=== PATIENT | male | born 1955 | race African-American/Black ===

== ENCOUNTER 2021-01-16 13:01 | Inpatient (IN) | payer MEDICARE ==
[2021-01-16] MEDS ORDERED: Benzonatate 100 MG CAP PO PRN (17:32)
[2021-01-16] MEDS ORDERED: Rivaroxaban 10 MG TAB PO SCH (17:45)
[2021-01-16] MEDS: Nicotine 14 MG PATCH TOP SCH (18:09)
[2021-01-16] MEDS: Gabapentin 400 MG CAP PO SCH (21:15)
[2021-01-16] MEDS: Lantus 1000 UNITS/10 ML VIAL SC SCH (21:16)
[2021-01-16] MEDS: Amoxicillin/Potassium Clav 875 MG TAB PO SCH (21:16)
[2021-01-16] MEDS ORDERED: Calcium Carbonate 500 MG ChewTAB PO PRN (21:33)
[2021-01-16] MEDS ORDERED: cloNIDine 0.1 MG TAB PO PRN (21:33)
[2021-01-16] MEDS ORDERED: Artificial Tear Sol 15 ML BOT EA EYE PRN (21:33)
[2021-01-16] MEDS ORDERED: Loperamide HCl 2 MG CAP PO PRN (21:33)
[2021-01-16] MEDS ORDERED: Acetaminophen 500 MG TAB PO PRN ×2 (21:33)
[2021-01-16] MEDS ORDERED: Eucerin (Mineral Oil/Petrolatum,White) 30 gm Jar TOP PRN (21:33)
[2021-01-16] MEDS ORDERED: Senokot S 8.6-50 MG TAB PO PRN (21:33)
[2021-01-16] MEDS ORDERED: Cepastat Lozenges 1 LOZ PO PRN (21:33)
[2021-01-16] MEDS ORDERED: Ondansetron ODT 4 MG TAB SL PRN (21:33)
[2021-01-16] MEDS ORDERED: Sodium Chloride 0.65% Nasal 44 ML BOT EA NARE PRN (21:33)
[2021-01-16] MEDS ORDERED: Dextrose 50% Abboject 50 ML SYRINGE SLOW IVP PRN (21:33)
[2021-01-17 05:42] LABS: Anion Gap 10 mmol/L (10-20); BUN (Urea Nitrogen) 8 mg/dL (8.4-25.7); Calc. Creatinine Clearance 107 mL/min (70-130); Calcium 8.3 mg/dL (7.8-10.44); Carbon Dioxide 26 mmol/L (23-31); Chloride 106 mmol/L (98-107); Glucose 262 mg/dL (80-115); Potassium 3.9 mmol/L (3.5-5.1); Sodium 138 mmol/L (136-145)
[2021-01-17] MEDS: HumaLOG 300 UNITS/3 ML VIAL SC PRN ×4 (05:47→20:54)
[2021-01-17 06:14] LABS: Band 11 % (5-11); Hemoglobin 8.8 g/dL (14.0-18.0); Hypochromia SLIGHT = 6-15 cells (100X) (0-5/hpf); Lymphocytes 24 % (21-51); MDiff Complete? YES; Mean Corpuscular HGB CONC 29.9 g/dL (32.0-36.0); Mean Corpuscular Hemoglobin 24.8 pg (27.0-31.0); Mean Corpuscular Volume 82.8 fL (78.0-98.0); Mean Platelet Volume 5.7 fL (7.4-10.4); Metamyelocyte 1 % (0-0); Monocytes 3 % (0-10); Neutrophil 61 % (42-75); Platelet Count 588 thou/uL (130-400); Platelet Morphology Comment Appears Increased; RBC Distribution Width 14.2 % (11.5-14.5); Red Blood Cell (RBC) Count 3.57 mill/uL (4.70-6.10); Target Cells SLIGHT = 2-5 cells (100X) (0-1/hpf); White Blood Cell (WBC) Count 9.2 thou/uL (4.8-10.8)
[2021-01-17] MEDS: Gabapentin 400 MG CAP PO SCH ×2 (08:25→20:52)
[2021-01-17] MEDS: Amoxicillin/Potassium Clav 875 MG TAB PO SCH ×2 (08:25→20:51)
[2021-01-17] MEDS: Tamsulosin HCl 0.4 MG CAP PO SCH (08:25)
[2021-01-17] MEDS: Amlodipine 5 MG TAB PO SCH (08:26)
[2021-01-17] MEDS: DULoxetine 30 MG CAP PO SCH (08:27)
[2021-01-17] MEDS: metFORMIN 500 MG TAB PO SCH ×2 (08:27→17:12)
[2021-01-17] MEDS: Saccharomyces boulardii 250 MG CAP PO SCH (08:27)
[2021-01-17] MEDS: Losartan Potassium 50 MG TAB PO SCH (08:27)
[2021-01-17] MEDS: Furosemide 20 MG TAB PO SCH (08:27)
[2021-01-17] MEDS: Glimepiride 2 MG TAB PO SCH (08:27)
[2021-01-17] MEDS: HYDROcodone/Acetaminophen 5/325 mg Tablet PO PRN ×2 (11:27→20:52)
[2021-01-17] MEDS: Rivaroxaban 10 MG TAB PO SCH (17:13)
[2021-01-17] MEDS: Nicotine 14 MG PATCH TOP SCH (17:14)
[2021-01-17] MEDS: Atorvastatin Calcium 40 MG TAB PO SCH (20:52)
[2021-01-17] MEDS: Lantus 1000 UNITS/10 ML VIAL SC SCH (20:53)
[2021-01-18] MEDS: Amoxicillin/Potassium Clav 875 MG TAB PO SCH ×2 (08:48→20:46)
[2021-01-18] MEDS: Saccharomyces boulardii 250 MG CAP PO SCH (08:48)
[2021-01-18] MEDS: Gabapentin 400 MG CAP PO SCH ×2 (08:49→20:47)
[2021-01-18] MEDS: Tamsulosin HCl 0.4 MG CAP PO SCH (08:50)
[2021-01-18] MEDS: DULoxetine 30 MG CAP PO SCH (08:50)
[2021-01-18] MEDS: Losartan Potassium 50 MG TAB PO SCH (08:50)
[2021-01-18] MEDS: Glimepiride 2 MG TAB PO SCH (08:50)
[2021-01-18] MEDS: metFORMIN 500 MG TAB PO SCH ×2 (08:50→18:14)
[2021-01-18] MEDS: Furosemide 20 MG TAB PO SCH (08:51)
[2021-01-18] MEDS: Amlodipine 5 MG TAB PO SCH (08:51)
[2021-01-18] MEDS: Rivaroxaban 10 MG TAB PO SCH (18:14)
[2021-01-18] MEDS: Nicotine 14 MG PATCH TOP SCH (18:15)
[2021-01-18] MEDS: HYDROcodone/Acetaminophen 5/325 mg Tablet PO PRN (20:46)
[2021-01-18] MEDS: Atorvastatin Calcium 40 MG TAB PO SCH (20:47)
[2021-01-18] MEDS: Lantus 1000 UNITS/10 ML VIAL SC SCH (20:51)
[2021-01-18] MEDS: Loperamide HCl 2 MG CAP PO PRN (22:34)
[2021-01-19] MEDS: HumaLOG 300 UNITS/3 ML VIAL SC PRN ×2 (05:49→12:50)
[2021-01-19] MEDS: metFORMIN 500 MG TAB PO SCH ×2 (08:26→17:02)
[2021-01-19] MEDS: Glimepiride 2 MG TAB PO SCH (08:27)
[2021-01-19] MEDS: Tamsulosin HCl 0.4 MG CAP PO SCH (08:27)
[2021-01-19] MEDS: Losartan Potassium 50 MG TAB PO SCH (08:28)
[2021-01-19] MEDS: Gabapentin 400 MG CAP PO SCH ×2 (08:28→19:59)
[2021-01-19] MEDS: Amoxicillin/Potassium Clav 875 MG TAB PO SCH ×2 (08:30→19:59)
[2021-01-19] MEDS: Saccharomyces boulardii 250 MG CAP PO SCH (08:31)
[2021-01-19] MEDS: Amlodipine 5 MG TAB PO SCH (08:31)
[2021-01-19] MEDS: DULoxetine 30 MG CAP PO SCH (08:32)
[2021-01-19] MEDS: Furosemide 20 MG TAB PO SCH (08:32)
[2021-01-19] MEDS: HYDROcodone/Acetaminophen 5/325 mg Tablet PO PRN ×2 (13:15→19:53)
[2021-01-19] MEDS: Nicotine 14 MG PATCH TOP SCH (17:02)
[2021-01-19] MEDS: Rivaroxaban 10 MG TAB PO SCH (17:02)
[2021-01-19] MEDS: Loperamide HCl 2 MG CAP PO PRN (19:53)
[2021-01-19] MEDS: Atorvastatin Calcium 40 MG TAB PO SCH (19:59)
[2021-01-19] MEDS: Lantus 1000 UNITS/10 ML VIAL SC SCH (19:59)
[2021-01-20] MEDS: Glimepiride 2 MG TAB PO SCH (08:04)
[2021-01-20] MEDS: metFORMIN 500 MG TAB PO SCH ×2 (08:04→17:42)
[2021-01-20] MEDS: Amlodipine 5 MG TAB PO SCH (08:04)
[2021-01-20] MEDS: Gabapentin 400 MG CAP PO SCH ×2 (08:05→20:50)
[2021-01-20] MEDS: Losartan Potassium 50 MG TAB PO SCH (08:06)
[2021-01-20] MEDS: Furosemide 20 MG TAB PO SCH (08:07)
[2021-01-20] MEDS: Tamsulosin HCl 0.4 MG CAP PO SCH (08:07)
[2021-01-20] MEDS: DULoxetine 30 MG CAP PO SCH (08:07)
[2021-01-20] MEDS: Saccharomyces boulardii 250 MG CAP PO SCH (08:07)
[2021-01-20] MEDS: Loperamide HCl 2 MG CAP PO PRN (08:08)
[2021-01-20] MEDS: Amoxicillin/Potassium Clav 875 MG TAB PO SCH ×2 (08:14→20:51)
[2021-01-20] MEDS: Rivaroxaban 10 MG TAB PO SCH (17:42)
[2021-01-20] MEDS: Nicotine 14 MG PATCH TOP SCH (17:42)
[2021-01-20] MEDS: HYDROcodone/Acetaminophen 5/325 mg Tablet PO PRN (18:39)
[2021-01-20] MEDS: Atorvastatin Calcium 40 MG TAB PO SCH (20:51)
[2021-01-20] MEDS: Lantus 1000 UNITS/10 ML VIAL SC SCH (20:52)
[2021-01-21] MEDS: metFORMIN 500 MG TAB PO SCH ×2 (08:14→17:06)
[2021-01-21] MEDS: Amlodipine 5 MG TAB PO SCH (08:14)
[2021-01-21] MEDS: Glimepiride 2 MG TAB PO SCH (08:14)
[2021-01-21] MEDS: Amoxicillin/Potassium Clav 875 MG TAB PO SCH ×2 (08:14→20:46)
[2021-01-21] MEDS: DULoxetine 30 MG CAP PO SCH (08:15)
[2021-01-21] MEDS: Furosemide 20 MG TAB PO SCH (08:15)
[2021-01-21] MEDS: Gabapentin 400 MG CAP PO SCH ×2 (08:15→20:45)
[2021-01-21] MEDS: Losartan Potassium 50 MG TAB PO SCH (08:16)
[2021-01-21] MEDS: Saccharomyces boulardii 250 MG CAP PO SCH (08:16)
[2021-01-21] MEDS: Tamsulosin HCl 0.4 MG CAP PO SCH (08:16)
[2021-01-21] MEDS: HYDROcodone/Acetaminophen 5/325 mg Tablet PO PRN ×3 (08:18→23:45)
[2021-01-21] MEDS: Nicotine 14 MG PATCH TOP SCH (17:06)
[2021-01-21] MEDS: HumaLOG 300 UNITS/3 ML VIAL SC PRN (17:06)
[2021-01-21] MEDS: Rivaroxaban 10 MG TAB PO SCH (17:06)
[2021-01-21] MEDS: Lantus 1000 UNITS/10 ML VIAL SC SCH (20:46)
[2021-01-21] MEDS: Atorvastatin Calcium 40 MG TAB PO SCH (20:46)
[2021-01-22] MEDS: Glimepiride 2 MG TAB PO SCH (08:15)
[2021-01-22] MEDS: Amlodipine 5 MG TAB PO SCH (08:15)
[2021-01-22] MEDS: metFORMIN 500 MG TAB PO SCH ×2 (08:15→16:44)
[2021-01-22] MEDS: Amoxicillin/Potassium Clav 875 MG TAB PO SCH ×2 (08:16→20:27)
[2021-01-22] MEDS: Gabapentin 400 MG CAP PO SCH ×2 (08:17→20:27)
[2021-01-22] MEDS: DULoxetine 30 MG CAP PO SCH (08:17)
[2021-01-22] MEDS: Furosemide 20 MG TAB PO SCH (08:17)
[2021-01-22] MEDS: Tamsulosin HCl 0.4 MG CAP PO SCH (08:18)
[2021-01-22] MEDS: Saccharomyces boulardii 250 MG CAP PO SCH (08:18)
[2021-01-22] MEDS: Losartan Potassium 50 MG TAB PO SCH (08:18)
[2021-01-22] MEDS: Nicotine 14 MG PATCH TOP SCH (16:43)
[2021-01-22] MEDS: Rivaroxaban 10 MG TAB PO SCH (16:43)
[2021-01-22] MEDS: Atorvastatin Calcium 40 MG TAB PO SCH (20:27)
[2021-01-22] MEDS: Lantus 1000 UNITS/10 ML VIAL SC SCH (20:27)
[2021-01-23 06:35] LABS: Anion Gap 10 mmol/L (10-20); BUN (Urea Nitrogen) 9 mg/dL (8.4-25.7); Calc. Creatinine Clearance 106 mL/min (70-130); Calcium 8.6 mg/dL (7.8-10.44); Carbon Dioxide 27 mmol/L (23-31); Chloride 107 mmol/L (98-107); Glucose 88 mg/dL (80-115); Potassium 3.9 mmol/L (3.5-5.1); Sodium 140 mmol/L (136-145)
[2021-01-23 06:38] LABS: #Basophils 0.1 thou/uL (0.0-0.2); #Eosinphils 0.3 thou/uL (0.0-0.7); #Lymphocytes 2.6 thou/uL (1.20-3.40); #Monocytes 0.3 thou/uL (0.11-0.59); %Basophils 0.8 % (0.0-1.0); %Eosinophils 3.1 % (0.0-10.0); %Monocytes 3.4 % (0.0-10.0); %Neutrophils 60.8 % (42.0-75.0); Hemoglobin 8.5 g/dL (14.0-18.0); Mean Corpuscular HGB CONC 29.8 g/dL (32.0-36.0); Mean Corpuscular Hemoglobin 24.9 pg (27.0-31.0); Mean Corpuscular Volume 83.5 fL (78.0-98.0); Mean Platelet Volume 4.9 fL (7.4-10.4); Platelet Count 638 thou/uL (130-400); RBC Distribution Width 15.8 % (11.5-14.5); Red Blood Cell (RBC) Count 3.42 mill/uL (4.70-6.10); White Blood Cell (WBC) Count 8.2 thou/uL (4.8-10.8)
[2021-01-23 06:40] LABS: Anisocytosis SLIGHT = 6-15 cells (100X) (0-5/hpf); Microcytosis SLIGHT = 6-15 cells (100X) (0-5/hpf); Platelet Morphology Comment Appears Increased
[2021-01-23] MEDS: Gabapentin 400 MG CAP PO SCH ×2 (08:30→21:42)
[2021-01-23] MEDS: Amoxicillin/Potassium Clav 875 MG TAB PO SCH ×2 (08:30→21:43)
[2021-01-23] MEDS: metFORMIN 500 MG TAB PO SCH ×2 (08:31→17:22)
[2021-01-23] MEDS: Saccharomyces boulardii 250 MG CAP PO SCH (08:31)
[2021-01-23] MEDS: DULoxetine 30 MG CAP PO SCH (08:31)
[2021-01-23] MEDS: Amlodipine 5 MG TAB PO SCH (08:31)
[2021-01-23] MEDS: Furosemide 20 MG TAB PO SCH (08:31)
[2021-01-23] MEDS: Glimepiride 2 MG TAB PO SCH (08:32)
[2021-01-23] MEDS: Tamsulosin HCl 0.4 MG CAP PO SCH (08:32)
[2021-01-23] MEDS: Losartan Potassium 50 MG TAB PO SCH (08:32)
[2021-01-23] MEDS: HumaLOG 300 UNITS/3 ML VIAL SC PRN ×3 (12:25→21:43)
[2021-01-23] MEDS: Nicotine 14 MG PATCH TOP SCH (17:22)
[2021-01-23] MEDS: Rivaroxaban 10 MG TAB PO SCH (17:22)
[2021-01-23] MEDS: Atorvastatin Calcium 40 MG TAB PO SCH (21:43)
[2021-01-23] MEDS: Lantus 1000 UNITS/10 ML VIAL SC SCH (21:43)
[2021-01-24] MEDS: Amoxicillin/Potassium Clav 875 MG TAB PO SCH ×2 (08:07→20:54)
[2021-01-24] MEDS: Losartan Potassium 50 MG TAB PO SCH (08:07)
[2021-01-24] MEDS: metFORMIN 500 MG TAB PO SCH ×2 (08:07→17:54)
[2021-01-24] MEDS: Saccharomyces boulardii 250 MG CAP PO SCH (08:08)
[2021-01-24] MEDS: Amlodipine 5 MG TAB PO SCH (08:08)
[2021-01-24] MEDS: Gabapentin 400 MG CAP PO SCH ×2 (08:08→20:53)
[2021-01-24] MEDS: DULoxetine 30 MG CAP PO SCH (08:08)
[2021-01-24] MEDS: Furosemide 20 MG TAB PO SCH (08:09)
[2021-01-24] MEDS: Tamsulosin HCl 0.4 MG CAP PO SCH (08:09)
[2021-01-24] MEDS: Glimepiride 2 MG TAB PO SCH (08:09)
[2021-01-24] MEDS: HumaLOG 300 UNITS/3 ML VIAL SC PRN (12:22)
[2021-01-24] MEDS: Rivaroxaban 10 MG TAB PO SCH (17:54)
[2021-01-24] MEDS: Nicotine 14 MG PATCH TOP SCH (18:30)
[2021-01-24] MEDS: Atorvastatin Calcium 40 MG TAB PO SCH (20:54)
[2021-01-24] MEDS: HYDROcodone/Acetaminophen 5/325 mg Tablet PO PRN (20:54)
[2021-01-24] MEDS: Lantus 1000 UNITS/10 ML VIAL SC SCH (20:55)
[2021-01-25] MEDS: Saccharomyces boulardii 250 MG CAP PO SCH (08:39)
[2021-01-25] MEDS: Losartan Potassium 50 MG TAB PO SCH (08:39)
[2021-01-25] MEDS: metFORMIN 500 MG TAB PO SCH ×2 (08:39→16:45)
[2021-01-25] MEDS: Gabapentin 400 MG CAP PO SCH ×2 (08:39→20:15)
[2021-01-25] MEDS: Amoxicillin/Potassium Clav 875 MG TAB PO SCH ×2 (08:39→20:16)
[2021-01-25] MEDS: Amlodipine 5 MG TAB PO SCH (08:39)
[2021-01-25] MEDS: Glimepiride 2 MG TAB PO SCH (08:40)
[2021-01-25] MEDS: DULoxetine 30 MG CAP PO SCH (08:40)
[2021-01-25] MEDS: Tamsulosin HCl 0.4 MG CAP PO SCH (08:40)
[2021-01-25] MEDS: Furosemide 20 MG TAB PO SCH (08:40)
[2021-01-25] MEDS: HumaLOG 300 UNITS/3 ML VIAL SC PRN (11:55)
[2021-01-25] MEDS: Nicotine 14 MG PATCH TOP SCH (16:45)
[2021-01-25] MEDS: Rivaroxaban 10 MG TAB PO SCH (16:45)
[2021-01-25] MEDS: Atorvastatin Calcium 40 MG TAB PO SCH (20:16)
[2021-01-25] MEDS: Lantus 1000 UNITS/10 ML VIAL SC SCH (20:17)
[2021-01-26] MEDS: HYDROcodone/Acetaminophen 5/325 mg Tablet PO PRN ×2 (01:17→21:53)
[2021-01-26] MEDS: HumaLOG 300 UNITS/3 ML VIAL SC PRN ×2 (06:27→17:07)
[2021-01-26] MEDS: Amlodipine 5 MG TAB PO SCH (09:23)
[2021-01-26] MEDS: metFORMIN 500 MG TAB PO SCH ×2 (09:24→17:06)
[2021-01-26] MEDS: Gabapentin 400 MG CAP PO SCH ×2 (09:24→21:44)
[2021-01-26] MEDS: Glimepiride 2 MG TAB PO SCH (09:24)
[2021-01-26] MEDS: DULoxetine 30 MG CAP PO SCH (09:24)
[2021-01-26] MEDS: Tamsulosin HCl 0.4 MG CAP PO SCH (09:24)
[2021-01-26] MEDS: Furosemide 20 MG TAB PO SCH (09:25)
[2021-01-26] MEDS: Losartan Potassium 50 MG TAB PO SCH (09:25)
[2021-01-26] MEDS: Saccharomyces boulardii 250 MG CAP PO SCH (09:25)
[2021-01-26] MEDS: Amoxicillin/Potassium Clav 875 MG TAB PO SCH ×2 (09:25→21:44)
[2021-01-26] MEDS: Rivaroxaban 10 MG TAB PO SCH (17:05)
[2021-01-26] MEDS: Nicotine 14 MG PATCH TOP SCH (17:06)
[2021-01-26] MEDS: Atorvastatin Calcium 40 MG TAB PO SCH (21:44)
[2021-01-26] MEDS: Lantus 1000 UNITS/10 ML VIAL SC SCH (21:45)
[2021-01-27] MEDS: HumaLOG 300 UNITS/3 ML VIAL SC PRN ×3 (06:15→21:22)
[2021-01-27] MEDS: Glimepiride 2 MG TAB PO SCH (08:04)
[2021-01-27] MEDS: metFORMIN 500 MG TAB PO SCH ×2 (08:04→17:41)
[2021-01-27] MEDS: Amlodipine 5 MG TAB PO SCH (08:04)
[2021-01-27] MEDS: Gabapentin 400 MG CAP PO SCH ×2 (08:06→21:21)
[2021-01-27] MEDS: Furosemide 20 MG TAB PO SCH (08:06)
[2021-01-27] MEDS: Amoxicillin/Potassium Clav 875 MG TAB PO SCH ×2 (08:06→21:21)
[2021-01-27] MEDS: DULoxetine 30 MG CAP PO SCH (08:06)
[2021-01-27] MEDS: Tamsulosin HCl 0.4 MG CAP PO SCH (08:07)
[2021-01-27] MEDS: Losartan Potassium 50 MG TAB PO SCH (08:07)
[2021-01-27] MEDS: Saccharomyces boulardii 250 MG CAP PO SCH (08:07)
[2021-01-27] MEDS: Rivaroxaban 10 MG TAB PO SCH (17:41)
[2021-01-27] MEDS: Nicotine 14 MG PATCH TOP SCH (18:13)
[2021-01-27] MEDS: Atorvastatin Calcium 40 MG TAB PO SCH (21:21)
[2021-01-27] MEDS: Lantus 1000 UNITS/10 ML VIAL SC SCH (21:22)
[2021-01-28] MEDS: Saccharomyces boulardii 250 MG CAP PO SCH (08:36)
[2021-01-28] MEDS: Furosemide 20 MG TAB PO SCH (08:36)
[2021-01-28] MEDS: metFORMIN 500 MG TAB PO SCH ×2 (08:36→18:24)
[2021-01-28] MEDS: Amoxicillin/Potassium Clav 875 MG TAB PO SCH ×2 (08:36→22:27)
[2021-01-28] MEDS: Tamsulosin HCl 0.4 MG CAP PO SCH (08:36)
[2021-01-28] MEDS: Amlodipine 5 MG TAB PO SCH (08:36)
[2021-01-28] MEDS: DULoxetine 30 MG CAP PO SCH (08:37)
[2021-01-28] MEDS: Gabapentin 400 MG CAP PO SCH ×2 (08:40→22:26)
[2021-01-28] MEDS: Glimepiride 2 MG TAB PO SCH (08:40)
[2021-01-28] MEDS: Losartan Potassium 50 MG TAB PO SCH (08:40)
[2021-01-28] MEDS: HYDROcodone/Acetaminophen 5/325 mg Tablet PO PRN (09:42)
[2021-01-28] MEDS: HumaLOG 300 UNITS/3 ML VIAL SC PRN ×2 (18:23→22:27)
[2021-01-28] MEDS: Nicotine 14 MG PATCH TOP SCH (18:23)
[2021-01-28] MEDS: Rivaroxaban 10 MG TAB PO SCH (18:24)
[2021-01-28] MEDS: Atorvastatin Calcium 40 MG TAB PO SCH (22:26)
[2021-01-28] MEDS: Lantus 1000 UNITS/10 ML VIAL SC SCH (22:27)
[2021-01-29] MEDS: HumaLOG 300 UNITS/3 ML VIAL SC PRN (06:34)
[2021-01-29] MEDS: Amlodipine 5 MG TAB PO SCH (08:04)
[2021-01-29] MEDS: Glimepiride 2 MG TAB PO SCH (08:04)
[2021-01-29] MEDS: metFORMIN 500 MG TAB PO SCH ×2 (08:04→17:14)
[2021-01-29] MEDS: Amoxicillin/Potassium Clav 875 MG TAB PO SCH ×2 (08:05→21:12)
[2021-01-29] MEDS: DULoxetine 30 MG CAP PO SCH (08:05)
[2021-01-29] MEDS: Furosemide 20 MG TAB PO SCH (08:05)
[2021-01-29] MEDS: Gabapentin 400 MG CAP PO SCH ×2 (08:05→21:12)
[2021-01-29] MEDS: Losartan Potassium 50 MG TAB PO SCH (08:07)
[2021-01-29] MEDS: Saccharomyces boulardii 250 MG CAP PO SCH (08:07)
[2021-01-29] MEDS: HYDROcodone/Acetaminophen 5/325 mg Tablet PO PRN ×2 (08:08→15:36)
[2021-01-29] MEDS: Tamsulosin HCl 0.4 MG CAP PO SCH (08:08)
[2021-01-29] MEDS: Rivaroxaban 10 MG TAB PO SCH (17:14)
[2021-01-29] MEDS: Nicotine 14 MG PATCH TOP SCH (17:14)
[2021-01-29] MEDS: Atorvastatin Calcium 40 MG TAB PO SCH (21:12)
[2021-01-29] MEDS: Lantus 1000 UNITS/10 ML VIAL SC SCH (21:22)
[2021-01-30 06:18] LABS: Hemoglobin 9.6 g/dL (14.0-18.0); Platelet Count 336 thou/uL (130-400)
[2021-01-30] MEDS: Glimepiride 2 MG TAB PO SCH (08:27)
[2021-01-30] MEDS: Amlodipine 5 MG TAB PO SCH (08:27)
[2021-01-30] MEDS: metFORMIN 500 MG TAB PO SCH ×2 (08:27→17:36)
[2021-01-30] MEDS: Gabapentin 400 MG CAP PO SCH ×2 (08:28→20:16)
[2021-01-30] MEDS: Furosemide 20 MG TAB PO SCH (08:28)
[2021-01-30] MEDS: Amoxicillin/Potassium Clav 875 MG TAB PO SCH ×2 (08:28→20:16)
[2021-01-30] MEDS: DULoxetine 30 MG CAP PO SCH (08:28)
[2021-01-30] MEDS: Saccharomyces boulardii 250 MG CAP PO SCH (08:30)
[2021-01-30] MEDS: Tamsulosin HCl 0.4 MG CAP PO SCH (08:30)
[2021-01-30] MEDS: Losartan Potassium 50 MG TAB PO SCH (08:30)
[2021-01-30] MEDS: HYDROcodone/Acetaminophen 5/325 mg Tablet PO PRN ×2 (12:48→22:51)
[2021-01-30] MEDS: Rivaroxaban 10 MG TAB PO SCH (17:36)
[2021-01-30] MEDS: Nicotine 14 MG PATCH TOP SCH (17:36)
[2021-01-30] MEDS: Lantus 1000 UNITS/10 ML VIAL SC SCH (20:16)
[2021-01-30] MEDS: Atorvastatin Calcium 40 MG TAB PO SCH (20:17)
[2021-01-31] MEDS: Amlodipine 5 MG TAB PO SCH (08:35)
[2021-01-31] MEDS: Gabapentin 400 MG CAP PO SCH ×2 (08:35→20:58)
[2021-01-31] MEDS: Losartan Potassium 50 MG TAB PO SCH (08:35)
[2021-01-31] MEDS: DULoxetine 30 MG CAP PO SCH (08:36)
[2021-01-31] MEDS: metFORMIN 500 MG TAB PO SCH ×2 (08:36→16:45)
[2021-01-31] MEDS: Saccharomyces boulardii 250 MG CAP PO SCH (08:36)
[2021-01-31] MEDS: Glimepiride 2 MG TAB PO SCH (08:36)
[2021-01-31] MEDS: Furosemide 20 MG TAB PO SCH (08:36)
[2021-01-31] MEDS: Tamsulosin HCl 0.4 MG CAP PO SCH (08:36)
[2021-01-31] MEDS: Amoxicillin/Potassium Clav 875 MG TAB PO SCH ×2 (08:36→20:58)
[2021-01-31] MEDS: HYDROcodone/Acetaminophen 5/325 mg Tablet PO PRN ×2 (08:43→20:59)
[2021-01-31] MEDS: Nicotine 14 MG PATCH TOP SCH (16:45)
[2021-01-31] MEDS: Rivaroxaban 10 MG TAB PO SCH (16:45)
[2021-01-31] MEDS: Atorvastatin Calcium 40 MG TAB PO SCH (20:59)
[2021-01-31] MEDS: Lantus 1000 UNITS/10 ML VIAL SC SCH (21:00)
[2021-02-01] MEDS: metFORMIN 500 MG TAB PO SCH ×2 (07:31→16:42)
[2021-02-01] MEDS: Glimepiride 2 MG TAB PO SCH (07:32)
[2021-02-01] MEDS: Amoxicillin/Potassium Clav 875 MG TAB PO SCH ×2 (08:31→20:40)
[2021-02-01] MEDS: Gabapentin 400 MG CAP PO SCH ×2 (08:32→20:39)
[2021-02-01] MEDS: Saccharomyces boulardii 250 MG CAP PO SCH (08:33)
[2021-02-01] MEDS: Furosemide 20 MG TAB PO SCH (08:35)
[2021-02-01] MEDS: Tamsulosin HCl 0.4 MG CAP PO SCH (08:35)
[2021-02-01] MEDS: DULoxetine 30 MG CAP PO SCH (08:35)
[2021-02-01] MEDS: HYDROcodone/Acetaminophen 5/325 mg Tablet PO PRN ×2 (08:43→16:43)
[2021-02-01] MEDS: Amlodipine 5 MG TAB PO SCH (10:41)
[2021-02-01] MEDS: Losartan Potassium 50 MG TAB PO SCH (10:41)
[2021-02-01] MEDS: Nicotine 14 MG PATCH TOP SCH (16:42)
[2021-02-01] MEDS: Rivaroxaban 10 MG TAB PO SCH (16:42)
[2021-02-01] MEDS: Lantus 1000 UNITS/10 ML VIAL SC SCH (20:39)
[2021-02-01] MEDS: Atorvastatin Calcium 40 MG TAB PO SCH (20:40)
[2021-02-02] MEDS: HumaLOG 300 UNITS/3 ML VIAL SC PRN ×2 (05:34→12:24)
[2021-02-02] MEDS: HYDROcodone/Acetaminophen 5/325 mg Tablet PO PRN ×2 (09:20→21:19)
[2021-02-02] MEDS: Losartan Potassium 50 MG TAB PO SCH (09:21)
[2021-02-02] MEDS: metFORMIN 500 MG TAB PO SCH ×2 (09:21→17:16)
[2021-02-02] MEDS: Gabapentin 400 MG CAP PO SCH ×2 (09:22→21:19)
[2021-02-02] MEDS: Saccharomyces boulardii 250 MG CAP PO SCH (09:22)
[2021-02-02] MEDS: Glimepiride 2 MG TAB PO SCH (09:22)
[2021-02-02] MEDS: DULoxetine 30 MG CAP PO SCH (09:22)
[2021-02-02] MEDS: Furosemide 20 MG TAB PO SCH (09:24)
[2021-02-02] MEDS: Amoxicillin/Potassium Clav 875 MG TAB PO SCH ×2 (09:24→21:18)
[2021-02-02] MEDS: Tamsulosin HCl 0.4 MG CAP PO SCH (09:24)
[2021-02-02] MEDS: Rivaroxaban 10 MG TAB PO SCH (17:15)
[2021-02-02] MEDS: Nicotine 14 MG PATCH TOP SCH (17:16)
[2021-02-02] MEDS: Lantus 1000 UNITS/10 ML VIAL SC SCH (21:18)
[2021-02-02] MEDS: Atorvastatin Calcium 40 MG TAB PO SCH (21:19)
[2021-02-02] MEDS: Amlodipine 5 MG TAB PO SCH (21:20)
[2021-02-03] MEDS: Glimepiride 2 MG TAB PO SCH (08:46)
[2021-02-03] MEDS: DULoxetine 30 MG CAP PO SCH (08:51)
[2021-02-03] MEDS: metFORMIN 500 MG TAB PO SCH ×2 (08:51→16:43)
[2021-02-03] MEDS: Amoxicillin/Potassium Clav 875 MG TAB PO SCH ×2 (08:51→22:29)
[2021-02-03] MEDS: Losartan Potassium 50 MG TAB PO SCH (08:52)
[2021-02-03] MEDS: Gabapentin 400 MG CAP PO SCH ×2 (08:52→22:30)
[2021-02-03] MEDS: Saccharomyces boulardii 250 MG CAP PO SCH (08:53)
[2021-02-03] MEDS: Tamsulosin HCl 0.4 MG CAP PO SCH (08:53)
[2021-02-03] MEDS: Furosemide 20 MG TAB PO SCH (08:54)
[2021-02-03] MEDS: HYDROcodone/Acetaminophen 5/325 mg Tablet PO PRN (09:44)
[2021-02-03] MEDS: Rivaroxaban 10 MG TAB PO SCH (16:43)
[2021-02-03] MEDS: Nicotine 14 MG PATCH TOP SCH (16:43)
[2021-02-03] MEDS: Atorvastatin Calcium 40 MG TAB PO SCH (22:29)
[2021-02-03] MEDS: Amlodipine 5 MG TAB PO SCH (22:35)
[2021-02-03] MEDS: Lantus 1000 UNITS/10 ML VIAL SC SCH (22:36)
[2021-02-03] MEDS: HumaLOG 300 UNITS/3 ML VIAL SC PRN (22:43)
[2021-02-04] MEDS: HumaLOG 300 UNITS/3 ML VIAL SC PRN ×2 (07:05→18:16)
[2021-02-04] MEDS: Saccharomyces boulardii 250 MG CAP PO SCH (08:34)
[2021-02-04] MEDS: Tamsulosin HCl 0.4 MG CAP PO SCH (08:34)
[2021-02-04] MEDS: DULoxetine 30 MG CAP PO SCH (08:34)
[2021-02-04] MEDS: Glimepiride 2 MG TAB PO SCH (08:34)
[2021-02-04] MEDS: Gabapentin 400 MG CAP PO SCH ×2 (08:35→20:26)
[2021-02-04] MEDS: Furosemide 20 MG TAB PO SCH (08:37)
[2021-02-04] MEDS: metFORMIN 500 MG TAB PO SCH ×2 (08:37→18:10)
[2021-02-04] MEDS: Losartan Potassium 50 MG TAB PO SCH (08:37)
[2021-02-04] MEDS: Amoxicillin/Potassium Clav 875 MG TAB PO SCH (08:38)
[2021-02-04] MEDS: HYDROcodone/Acetaminophen 5/325 mg Tablet PO PRN (08:44)
[2021-02-04] MEDS: Rivaroxaban 10 MG TAB PO SCH (18:10)
[2021-02-04] MEDS: Nicotine 14 MG PATCH TOP SCH (18:11)
[2021-02-04] MEDS: Atorvastatin Calcium 40 MG TAB PO SCH (20:26)
[2021-02-04] MEDS: Amlodipine 5 MG TAB PO SCH (20:28)
[2021-02-04] MEDS: Lantus 1000 UNITS/10 ML VIAL SC SCH (20:55)
[2021-02-05] MEDS: metFORMIN 500 MG TAB PO SCH ×2 (08:20→17:06)
[2021-02-05] MEDS: DULoxetine 30 MG CAP PO SCH (08:20)
[2021-02-05] MEDS: Glimepiride 2 MG TAB PO SCH (08:20)
[2021-02-05] MEDS: Furosemide 20 MG TAB PO SCH (08:20)
[2021-02-05] MEDS: Gabapentin 400 MG CAP PO SCH ×2 (08:21→22:10)
[2021-02-05] MEDS: Saccharomyces boulardii 250 MG CAP PO SCH (08:22)
[2021-02-05] MEDS: Losartan Potassium 50 MG TAB PO SCH (08:22)
[2021-02-05] MEDS: Tamsulosin HCl 0.4 MG CAP PO SCH (08:23)
[2021-02-05] MEDS: HYDROcodone/Acetaminophen 5/325 mg Tablet PO PRN ×2 (09:32→22:23)
[2021-02-05] MEDS: HumaLOG 300 UNITS/3 ML VIAL SC PRN (12:34)
[2021-02-05] MEDS: Rivaroxaban 10 MG TAB PO SCH (17:06)
[2021-02-05] MEDS: Nicotine 14 MG PATCH TOP SCH (17:06)
[2021-02-05] MEDS: Atorvastatin Calcium 40 MG TAB PO SCH (22:13)
[2021-02-05] MEDS: Amlodipine 5 MG TAB PO SCH (22:14)
[2021-02-05] MEDS: Lantus 1000 UNITS/10 ML VIAL SC SCH (22:14)
[2021-02-06 07:55] LABS: Hemoglobin 8.9 g/dL (14.0-18.0); Platelet Count 243 thou/uL (130-400)
[2021-02-06] MEDS: HYDROcodone/Acetaminophen 5/325 mg Tablet PO PRN (08:11)
[2021-02-06] MEDS: Tamsulosin HCl 0.4 MG CAP PO SCH (08:12)
[2021-02-06] MEDS: Gabapentin 400 MG CAP PO SCH ×2 (08:12→21:27)
[2021-02-06] MEDS: Furosemide 20 MG TAB PO SCH (08:13)
[2021-02-06] MEDS: DULoxetine 30 MG CAP PO SCH (08:13)
[2021-02-06] MEDS: Glimepiride 2 MG TAB PO SCH (08:13)
[2021-02-06] MEDS: Losartan Potassium 50 MG TAB PO SCH (08:13)
[2021-02-06] MEDS: metFORMIN 500 MG TAB PO SCH ×2 (08:13→17:29)
[2021-02-06] MEDS: Saccharomyces boulardii 250 MG CAP PO SCH (08:13)
[2021-02-06] MEDS: HumaLOG 300 UNITS/3 ML VIAL SC PRN ×2 (12:23→17:32)
[2021-02-06] MEDS: Rivaroxaban 10 MG TAB PO SCH (17:28)
[2021-02-06] MEDS: Nicotine 14 MG PATCH TOP SCH (17:53)
[2021-02-06] MEDS: Amlodipine 5 MG TAB PO SCH (21:26)
[2021-02-06] MEDS: Atorvastatin Calcium 40 MG TAB PO SCH (21:26)
[2021-02-06] MEDS: Lantus 1000 UNITS/10 ML VIAL SC SCH (21:29)
[2021-02-07] MEDS: Losartan Potassium 50 MG TAB PO SCH (08:40)
[2021-02-07] MEDS: Gabapentin 400 MG CAP PO SCH ×2 (08:40→21:10)
[2021-02-07] MEDS: Saccharomyces boulardii 250 MG CAP PO SCH (08:40)
[2021-02-07] MEDS: Furosemide 20 MG TAB PO SCH (08:41)
[2021-02-07] MEDS: DULoxetine 30 MG CAP PO SCH (08:41)
[2021-02-07] MEDS: Tamsulosin HCl 0.4 MG CAP PO SCH (08:41)
[2021-02-07] MEDS: metFORMIN 500 MG TAB PO SCH ×2 (08:41→17:42)
[2021-02-07] MEDS: Glimepiride 2 MG TAB PO SCH (08:42)
[2021-02-07] MEDS: HYDROcodone/Acetaminophen 5/325 mg Tablet PO PRN ×2 (08:52→14:16)
[2021-02-07] MEDS: Nicotine 14 MG PATCH TOP SCH (17:42)
[2021-02-07] MEDS: Rivaroxaban 10 MG TAB PO SCH (17:42)
[2021-02-07] MEDS: Lantus 1000 UNITS/10 ML VIAL SC SCH (21:07)
[2021-02-07] MEDS: Atorvastatin Calcium 40 MG TAB PO SCH (21:07)
[2021-02-07] MEDS: HumaLOG 300 UNITS/3 ML VIAL SC PRN (21:07)
[2021-02-07] MEDS: Amlodipine 5 MG TAB PO SCH (21:09)
[2021-02-08] MEDS: HumaLOG 300 UNITS/3 ML VIAL SC PRN ×3 (06:37→20:52)
[2021-02-08] MEDS: Glimepiride 2 MG TAB PO SCH (08:18)
[2021-02-08] MEDS: Furosemide 20 MG TAB PO SCH (08:18)
[2021-02-08] MEDS: metFORMIN 500 MG TAB PO SCH ×2 (08:18→16:02)
[2021-02-08] MEDS: Gabapentin 400 MG CAP PO SCH ×2 (08:18→20:51)
[2021-02-08] MEDS: DULoxetine 30 MG CAP PO SCH (08:18)
[2021-02-08] MEDS: Tamsulosin HCl 0.4 MG CAP PO SCH (08:20)
[2021-02-08] MEDS: Saccharomyces boulardii 250 MG CAP PO SCH (08:20)
[2021-02-08] MEDS: Losartan Potassium 50 MG TAB PO SCH (08:20)
[2021-02-08] MEDS: HYDROcodone/Acetaminophen 5/325 mg Tablet PO PRN (08:21)
[2021-02-08] MEDS: Rivaroxaban 10 MG TAB PO SCH (16:02)
[2021-02-08] MEDS: Nicotine 14 MG PATCH TOP SCH (16:02)
[2021-02-08] MEDS: Atorvastatin Calcium 40 MG TAB PO SCH (20:51)
[2021-02-08] MEDS: Lantus 1000 UNITS/10 ML VIAL SC SCH (20:52)
[2021-02-08] MEDS: Amlodipine 5 MG TAB PO SCH (20:54)
[2021-02-09 06:30] VITALS: BMI 32.3
[2021-02-09] MEDS: Glimepiride 2 MG TAB PO SCH (08:53)
[2021-02-09] MEDS: metFORMIN 500 MG TAB PO SCH ×2 (08:53→17:38)
[2021-02-09] MEDS: Furosemide 20 MG TAB PO SCH (08:53)
[2021-02-09] MEDS: Gabapentin 400 MG CAP PO SCH ×2 (08:53→20:43)
[2021-02-09] MEDS: DULoxetine 30 MG CAP PO SCH (08:53)
[2021-02-09] MEDS: Tamsulosin HCl 0.4 MG CAP PO SCH (08:55)
[2021-02-09] MEDS: Saccharomyces boulardii 250 MG CAP PO SCH (08:55)
[2021-02-09] MEDS: Losartan Potassium 50 MG TAB PO SCH (08:55)
[2021-02-09] MEDS: HYDROcodone/Acetaminophen 5/325 mg Tablet PO PRN (09:40)
[2021-02-09] MEDS: Nicotine 14 MG PATCH TOP SCH (17:38)
[2021-02-09] MEDS: Rivaroxaban 10 MG TAB PO SCH (17:38)
[2021-02-09] MEDS: HumaLOG 300 UNITS/3 ML VIAL SC PRN ×2 (17:38→20:46)
[2021-02-09] MEDS: Atorvastatin Calcium 40 MG TAB PO SCH (20:44)
[2021-02-09] MEDS: Lantus 1000 UNITS/10 ML VIAL SC SCH (20:44)
[2021-02-09] MEDS: Amlodipine 5 MG TAB PO SCH (20:44)
[2021-02-10 06:27] LABS: #Eosinphils 0.2 thou/uL (0.0-0.7); #Lymphocytes 2.5 thou/uL (1.20-3.40); #Monocytes 0.3 thou/uL (0.11-0.59); #Neutrophils 1.7 thou/uL (1.40-6.50); %Eosinophils 4.5 % (0.0-10.0); %Lymphocytes 53.8 % (21.0-51.0); %Monocytes 5.5 % (0.0-10.0); %Neutrophils 35.2 % (42.0-75.0); Hemoglobin 9.3 g/dL (14.0-18.0); Mean Corpuscular Hemoglobin 25.7 pg (27.0-31.0); Mean Corpuscular Volume 85.8 fL (78.0-98.0); Mean Platelet Volume 6.3 fL (7.4-10.4); Platelet Count 304 thou/uL (130-400); RBC Distribution Width 17.6 % (11.5-14.5); Red Blood Cell (RBC) Count 3.61 mill/uL (4.70-6.10); White Blood Cell (WBC) Count 4.7 thou/uL (4.8-10.8)
[2021-02-10 06:39] LABS: Anion Gap 13 mmol/L (10-20); BUN (Urea Nitrogen) 20 mg/dL (8.4-25.7); Calc. Creatinine Clearance 112 mL/min (70-130); Calcium 9.3 mg/dL (7.8-10.44); Carbon Dioxide 22 mmol/L (23-31); Chloride 110 mmol/L (98-107); Glucose 112 mg/dL (80-115); Potassium 5.1 mmol/L (3.5-5.1); Sodium 140 mmol/L (136-145)
[2021-02-10] MEDS: Losartan Potassium 50 MG TAB PO SCH (09:08)
[2021-02-10] MEDS: Saccharomyces boulardii 250 MG CAP PO SCH (09:08)
[2021-02-10] MEDS: Gabapentin 400 MG CAP PO SCH ×3 (09:08→20:54)
[2021-02-10] MEDS: DULoxetine 30 MG CAP PO SCH (09:09)
[2021-02-10] MEDS: Furosemide 20 MG TAB PO SCH (09:09)
[2021-02-10] MEDS: metFORMIN 500 MG TAB PO SCH ×2 (09:09→16:45)
[2021-02-10] MEDS: Tamsulosin HCl 0.4 MG CAP PO SCH (09:09)
[2021-02-10] MEDS: Glimepiride 2 MG TAB PO SCH (09:09)
[2021-02-10] MEDS: HYDROcodone/Acetaminophen 5/325 mg Tablet PO PRN ×2 (11:47→21:07)
[2021-02-10] MEDS: HumaLOG 300 UNITS/3 ML VIAL SC PRN ×2 (11:48→17:10)
[2021-02-10] MEDS: Rivaroxaban 10 MG TAB PO SCH (16:45)
[2021-02-10] MEDS: Nicotine 14 MG PATCH TOP SCH (16:45)
[2021-02-10] MEDS: Amlodipine 5 MG TAB PO SCH (20:53)
[2021-02-10] MEDS: Atorvastatin Calcium 40 MG TAB PO SCH (20:53)
[2021-02-10] MEDS: Lantus 1000 UNITS/10 ML VIAL SC SCH (20:55)
[2021-02-11] MEDS: Saccharomyces boulardii 250 MG CAP PO SCH (08:30)
[2021-02-11] MEDS: Gabapentin 400 MG CAP PO SCH (08:30)
[2021-02-11] MEDS: Losartan Potassium 50 MG TAB PO SCH (08:30)
[2021-02-11] MEDS: Tamsulosin HCl 0.4 MG CAP PO SCH (08:30)
[2021-02-11] MEDS: metFORMIN 500 MG TAB PO SCH (08:31)
[2021-02-11] MEDS: DULoxetine 30 MG CAP PO SCH (08:31)
[2021-02-11] MEDS: Furosemide 20 MG TAB PO SCH (08:31)
[2021-02-11] MEDS: Glimepiride 2 MG TAB PO SCH (08:31)
[2021-02-11] MEDS: HYDROcodone/Acetaminophen 5/325 mg Tablet PO PRN (08:36)
[2021-02-11 09:01] VITALS: BP 109/73; TEMP 97.4
== END 2021-02-11 13:32 | disposition home or self-care (01) | DRG 948 ==
LOC: NAV ACUTE 14:45
PROVIDERS: ADMIT Family Medicine; ATTEND Family Medicine
DX: R53.81 Other malaise (principal); I69.351 Hemiplegia and hemiparesis following cerebral infarction affecting right dominant side; I10 Essential (primary) hypertension; I25.10 Atherosclerotic heart disease of native coronary artery without angina pectoris; E78.5 Hyperlipidemia, unspecified; E11.51 Type 2 diabetes mellitus with diabetic peripheral angiopathy without gangrene; N40.0 Benign prostatic hyperplasia without lower urinary tract symptoms; R13.10 Dysphagia, unspecified; J44.9 Chronic obstructive pulmonary disease, unspecified; I25.2 Old myocardial infarction; Z86.718 Personal history of other venous thrombosis and embolism; Z79.01 Long term (current) use of anticoagulants; Z90.49 Acquired absence of other specified parts of digestive tract; Z89.611 Acquired absence of right leg above knee
CPT/HCPCS: 36415; 36416; 80048; 85014; 85018; 85025; 85049; 94640; J1815; J7620; Q0162